=== PATIENT | male | born 1955 | race Caucasian/White ===

== ENCOUNTER 2018-01-02 14:31 | Emergency (ER) | payer OTHER ==
[~2018-01-02] VITALS: Ht 177.8 cm; Wt 112.5 kg
[~2018-01-02 14:31] MED LIST: ASPI81TA82 PO; BLOOD PRESSURE PILL; CITA10SO PO; GUAI100S6 PO; METF-324 PO; OSEL75 PO; VENTAER INH
[2018-01-02 14:36] VITALS: BP 113/64; PULSE 78; RESP 18; TEMP 97.7; O2SAT 95
[2018-01-02] MEDS ORDERED: CITA40TA4 PO (14:49)
[2018-01-02] MEDS ORDERED: METF1000 PO (14:49)
[2018-01-02] MEDS ORDERED: LISI40TA PO (14:49)
[2018-01-02] MEDS ORDERED: ASPI-516 CHEW (14:49)
[2018-01-02] MEDS ORDERED: SIMV40TA PO (14:49)
[2018-01-02] MEDS ORDERED: GLIP10TA6 PO (14:49)
[2018-01-02] MEDS ORDERED: SODIUM CHLOR 0.9% 1000 ML INJ 1,000 ML IV ONE (15:00)
--- NOTE | 2018-01-02 15:22 | RADRPT ---
EXAM DATE/TIME: 01/02/2018 14:54 [facility] COMPARISON: No previous studies available for comparison. INDICATIONS : Chest pain. MEDICAL HISTORY : Hypertension. Diabetes mellitus type II. Hypercholesterolemia. SURGICAL HISTORY : None. ENCOUNTER: Initial ACUITY: 1 day PAIN SCORE: 1/10 LOCATION: Bilateral chest FINDINGS: The heart is normal. The pulmonary spine is normal. The lungs are clear. Radiopaque foreign bodies ar e identified in the right infraclavicular region. CONCLUSION: No acute cardiopulmonary disease. Jens Salas MD on January 02, 2018 at 15:14 Board Certified Radiologist. This report was verified electronically.
[2018-01-02 15:31] LABS: BASOPHIL % 0.2 % (0.0-2.0); EOSINOPHIL % 0.3 % (0.0-4.0); HEMATOCRIT 40.7 % (39.0-51.0); HEMOGLOBIN 13.5 GM/DL (13.0-17.0); LYMPH % 19.7 % (9.0-44.0); LYMPHOCYTE # 2.5 TH/MM3 (1.0-4.8); MEAN CELL VOLUME 89.4 FL (80.0-100.0); MEAN CORPUSCULAR HEMOGLOBIN 29.7 PG (27.0-34.0); MEAN CORPUSCULAR HGB CONC 33.3 % (32.0-36.0); MEAN PLATELET VOLUME 6.8 FL (7.0-11.0); MONO % 10.5 % (0.0-8.0); MONOCYTE # 1.3 TH/MM3 (0-0.9); NEUT % 69.3 % (16.0-70.0); PLATELET COUNT 251 TH/MM3 (150-450); RED BLOOD COUNT 4.55 MIL/MM3 (4.50-5.90); RED CELL DISTRIBUTION WIDTH 12.1 % (11.6-17.2); WHITE BLOOD COUNT 12.8 TH/MM3 (4.0-11.0)
[2018-01-02 15:41] LABS: CHLORIDE 100 MEQ/L (98-107); SODIUM (NA) 134 MEQ/L (136-145)
[2018-01-02 15:44] LABS: CALCIUM 8.7 MG/DL (8.5-10.1)
[2018-01-02 15:45] LABS: ALBUMIN 3.6 GM/DL (3.4-5.0); BICARBONATE 25.4 MEQ/L (21.0-32.0); BLOOD UREA NITROGEN 18 MG/DL (7-18); GLUCOSE,RANDOM 177 MG/DL (74-106)
[2018-01-02 15:48] LABS: ALT (GPT) 18 U/L (12-78); AST (GOT) 10 U/L (15-37); GLOMERULAR FILTRATION RATE 51 ML/MIN (>89)
[2018-01-02 15:49] LABS: TOTAL BILIRUBIN ADULT 0.8 MG/DL (0.2-1.0); TOTAL PROTEIN 7.4 GM/DL (6.4-8.2)
[2018-01-02 15:51] LABS: ALKALINE PHOSPHATASE 25 U/L (45-117)
[2018-01-02 15:53] LABS: TROPONIN I LESS THAN 0.02 NG/ML (0.02-0.05)
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
[2018-01-02 16:58] VITALS: BP 109/56; PULSE 76; RESP 16; O2SAT 97
--- NOTE | 2018-01-02 17:23 | RADRPT ---
EXAM DATE/TIME: 01/02/2018 17:12 [facility] COMPARISON: None. INDICATIONS : <<Syncope.>> RADIATION DOSE: <<62.65>> CTDIvol (mGy) MEDICAL HISTORY : Hypercholesterolemia. Hypertension. Diabetes. SURGICAL HISTORY : Tonsillectomy. ENCOUNTER: Initial ACUITY: 1 day PAIN SCALE: 0/10 LOCATION: cranial TECHNIQUE: Multiple contiguous axial images were obtained of the head. Using automated exposure control and adj ustment of the mA and/or kV according to patient size, radiation dose was kept as low as reasonably a chievable to obtain optimal diagnostic quality images. DICOM format image data is available electro nically for review and comparison. FINDINGS: CEREBRUM: The ventricles are normal for age. No evidence of midline shift, mass lesion, hemorrhage or acute in farction. No extra-axial fluid collections are seen. POSTERIOR FOSSA: The cerebellum and brainstem are intact. The 4th ventricle is midline. The cerebellopontine angle i s unremarkable. EXTRACRANIAL: The visualized portion of the orbits is intact. SKULL: The calvaria is intact. No evidence of skull fracture. CONCLUSION: 1. No acute intracranial abnormalities. Tyree Anne MD on January 02, 2018 at 17:20 Board Certified Radiologist. This report was verified electronically.
[2018-01-02 17:48] VITALS: BP 121/69; PULSE 78; RESP 16; O2SAT 94
[2018-01-02] MEDS ORDERED: ZITHTAB PO (17:53)
--- NOTE | 2018-01-03 23:43 | EKG ---
Date Performed: 01/02/2018 Time Performed: 15:08:51 PTAGE: 62 years EKG: Sinus rhythm NORMAL ECG NO PREVIOUS TRACING DOCTOR: Tanner Wasserman Interpretating Date/Time 01/03/2018 23:39:42
== END 2018-01-02 18:00 | disposition home or self-care (01) ==
LOC: PHED 14:31
DX: J18.1 Lobar pneumonia, unspecified organism (principal); I10 Essential (primary) hypertension; E78.00 Pure hypercholesterolemia, unspecified; E11.9 Type 2 diabetes mellitus without complications; F32.9 Major depressive disorder, single episode, unspecified; Z79.84 Long term (current) use of oral hypoglycemic drugs; Z79.82 Long term (current) use of aspirin; Z79.899 Other long term (current) drug therapy
CPT/HCPCS: 70450; 71045; 74176; 80053; 80307; 83690; 83880; 84484; 85025; 93005; 96360; 99285; J7030